=== PATIENT | female | born 1970 | race Caucasian/White ===

== ENCOUNTER → 2016-07-01 | Outpatient (CLI) | payer OTHER ==
[~2016-07-01] MED LIST: ACETAMINOPHEN PO; AGGRENOX CAPSU1 EACH PO; ALBUTEROL NEB INH; ALPRAZOLAM 0.50.5 M1 PO; ALPRAZOLAM 0.50.5 MG PO; AMBIEN 10 MG TA10 MG PO; AMLODIPINE BESY10 MG PO; AMOXICILLIN 50500 MG PO; AMOXICILLIN875 MG PO; ANAPROX DS550 MG PO; ASPIR 8181 M1 PO; ASPIRIN 81 MG T81 MG NG; AUGMENTIN 875875 MG PO; CIPRO500 MG PO; CIPROFLOXACIN500 M3 PO; CITRUCEL500 MG PO; CLARITIN10 MG PO; COLCHICINE 0.60.6 M1 PO; COUMADIN 4 MG TA4 M1 PO; CYMBALTA60 MG PO; EFFEXOR XR150 MG PO; ENOXAPARIN40 MG/0.1 SUBQ; FEROSUL325 MG PO; FLEXERIL PO; GABAPENTIN PO; GEMFIBROZIL 60600 MG PO; HYDROCODON-ACE1 EAC5 PO; HYDROCODONE-AP1 EACH PO; IBUPROFEN 400400 M2; KEFLEX500 MG PO; MIDODRINE HCL 55 M1 PO; MIRALAX255 GM PO; MUCINEX TA600 MG/TA1 PO; NEPHROCAPS SOFT1 CAP PO; NEURONTIN PO; NEURONTIN600 MG PO; NEXIUM20 M1 PO; NORVASC10 MG PO; NOVOLOG100 UNIT/1 SQ; OMEGA-31000 MG PO; PACERONE 200 M200 M1 OR; PRILOSEC 20 MG20 MG PO; PRILOSEC40 MG PO; RENAGEL PO; REQUIP XL2 MG PO; SIMVASTATIN40 MG PO; SYNTHROID 0.10.1 M1 PG; TOPROL XL 25 MG25 M1 PO; TRAMADOL HCL50 MG PO; UNICOMPLEX M TA1 TA1 PO; VENTOLIN HFA 1818 GM INH; VICODIN 5-5001 EACH PO; VITAMIN B-12100 MC1 PO; VITAMIN B-1250 MCG PO; VITAMIN E400 UNI1 PO; VITAMINC500 PO; XANAX 0.5 MG0.5 M1 PO
== END ==
LOC: CAT 02:56 → LAB 14:17 → CAT 14:22 → LAB 18:50
DX: K46.9 Unspecified abdominal hernia without obstruction or gangrene (principal)

== ENCOUNTER 2016-08-06 05:37 | Day surgery (SDC) | payer OTHER ==
[~2016-08-06] VITALS: Ht 165.1 cm; Wt 96.6 kg
--- NOTE | ~2016-08-06 | O ---
[facility] [place]rius [place] [address] OPERATIVE REPORT Name: CLAY MCGREGOR Room #: 150-7 [facility]#: [id number] Admission: 08/06/16 Attend Phys: Jacque England MD, Discharge: Date of : 70 Report #: [id number] THIS REPORT FOR: //name// CC: Jacque Duran DATE OF SERVICE: 08/06/2016 PREOPERATIVE DIAGNOSES: 1. Incarcerated recurrent parastomal hernia. 2. Intermittent abdominal pain. 3. Morbid obesity with a body mass index of 35.47. 4. Suspected intra-abdominal adhesions. POSTOPERATIVE DIAGNOSES: 1. Incarcerated recurrent parastomal hernia. 2. Intermittent abdominal pain. 3. Morbid obesity with a body mass index of 35.47. 4. Dense and significant intra-abdominal adhesions. PROCEDURES PERFORMED: 1. Laparoscopic repair of an incarcerated recurrent parastomal hernia with bioresorbable mesh in the modified Sugarbaker technique. 2. Extensive laparoscopic lysis of adhesions. SURGEON: Jacque England MD SUPERCHARGE REPAIR SUPERVISOR: Jerome Davis MD ANESTHESIA: General endotracheal anesthesia. ESTIMATED BLOOD LOSS: Minimal (less than 5 mL). COMPLICATIONS: None appreciated. SPECIMENS: Incarcerated hernia contents to pathology. INDICATIONS: The patient is a 46-year-old morbidly obese female who follows up nearly 2 years status post complex open abdominal wall reconstruction procedure for incarcerated recurrent incisional ventral hernia and recurrent parastomal hernia. The patient unfortunately developed postoperative wound breakdown at the skin level for which she underwent aggressive local wound care. The patient has lost nearly 80 pounds since that time secondary to healthy eating and increased activity, but unfortunately has had intermittent constipation alternating with diarrhea and discomfort around her ostomy. As such, the patient did undergo CT scan of the abdomen and pelvis, which showed an [facility] [address] [place] [address] OPERATIVE REPORT Name: BALBIRCLAY Arndt Room #: 150-7 [facility]#: [id number] Admission: 08/06/16 Attend Phys: Jacque England MD, Discharge: Date of : 70 Report #: [id number] incarcerated recurrent parastomal hernia containing omentum. Indication was for laparoscopic possible open repair today. PROCEDURE: After explaining the risks, benefits, and alternatives of the procedure with the patient in detail in the preoperative holding area and obtaining written consent, the patient was brought to the operating room and placed supine on the operating room table. After conducting a thorough timeout procedure, verifying correct patient and procedure, the patient was given general endotracheal anesthesia. Once adequate anesthesia was obtained, her SCDs were hooked up to pneumatic compression device, she was given a preoperative dose of antibiotics in line with the SCIP protocol. The patient's abdomen was now prepped and draped in standard surgical sterile fashion after placing a Parker catheter in her ostomy and inflating the 30mL balloon and then covering that with an Ioban. Once the patient was sterilely draped in standard fashion, 5 mL of 0.5% Marcaine with epinephrine were used to anesthetize the skin in the right lower quadrant at the anterior axillary line in a location immediately superior to the anterior superior iliac spine. A #15 bladed scalpel was used to create a small skin vivien at this location. A 5-mm Visiport was placed over 0 degree 5-mm laparoscope and was introduced through this incision site. Once intraabdominal placement was verified visually, the obturator for the trocar and laparoscope were both removed and the abdomen was insufflated to 15 mmHg using carbon dioxide gas. The laparoscope was changed to a 5-mm 30-degree laparoscope, which was reintroduced through this trocar. The entire abdomen was evaluated to ensure no injury upon entry. We immediately encountered marked intra-abdominal adhesions throughout the mid abdominal region into the left lateral abdomen; however, the right lateral abdomen was devoid of adhesions. As such, I was able to place 2 additional trocars in the right flank. The first of the 12-mm port placed in the right upper quadrant in a subcostal location and another was a 5-mm port in the subxiphoid location. Both additional trocars were placed under direct vision after anesthetizing the skin at each location with 5 mL of 0.5% Marcaine with epinephrine, and I had created appropriately sized skin nicks using #15 bladed scalpel. Laparoscope was placed through the 12-mm trocar and I began to carry out an extensive laparoscopic lysis of adhesions that took greater than 90 minutes to perform. Any time I was near bowel, cold dissection was undertaken with the EndoShears so as to prevent injury from thermal spread. Throughout the dissection, we stayed well away from bowel loops at all times until we approached the ostomy site where there was one loop of bowel near the ostomy site that was intimately tethered to prior biologic mesh that was used as an underlay. In taking this down with EndoShears, there was a questionable serosal defect and as such, I did use 3-0 PDS on an SH needle to perform a intracorporeal suture repair of the questionable serosal defect to be safe. I then completed the lysis of adhesions and was able to fully reduce the omentum incarcerated in the parastomal hernia. This left the ostomy intact with evidence of a moderate sized parastomal hernia. Photodocumentation of the hernia was taken and provided to the patient and permanent medical record. I then proceeded to repair the hernia defect using a [facility] [address] [place] [address] OPERATIVE REPORT Name: CLAY MCGREGOR Room #: 150-7 [facility].#: [id number] Admission: 08/06/16 Attend Phys: Jacque England MD, Discharge: Date of : 70 Report #: [id number] Surgidac on the EndoStitch device to place 3 sutures medial to the colon emanating through the abdominal wall. This brought the defect closed to where it was snug, but not extremely tight to the colon. Photodocumentation of this repair was also taken and provided to the patient in the permanent medical record. I then selected a piece of Phasix ST mesh that measured 10 x 10 cm in dimension. This was placed into the abdomen through the 12 mm port and was maneuvered into position to give us excellent overlap outside of the hernia repair and was done in a modified Sugarbaker technique. The secure strap absorbable fixation device was now used to place tacks throughout the Phasix mesh to anchor to the abdominal wall ensuring that the separate film side of the mesh was exposed to the intra-abdominal domain. The mesh was able to be seen through and therefore it was easy to ensure that we did not place a tack into bowel accidently. At the completion of the mesh fixation, we had excellent orientation of the mesh, the bowel run laterally down the pelvic side wall and we had complete hemostasis. Final evaluation of the intraabdominal domain showed no further evidence of pathology. Laparoscope was placed back into the subxiphoid trocar and I closed the 12-mm fascial incision using 0 PDS suture on a Sy-Dioni needle under direct vision. This was tied down. The abdomen was fully desufflated. All ports were removed under direct vision. A 4-0 Monocryl was used in a standard subcuticular fashion for all skin incisions and Dermabond glue was applied to all skin wounds. The Parker catheter was placed and the ostomy was removed at the completion of the procedure and digital finger intubation of her ostomy showed it to be patent to a subfascial level. I felt no further evidence of parastomal herniation at this time as well. At the end of the procedure, all instrument, needle, and sponge counts were correct. The patient tolerated the procedure without incident. She was awakened in the operating room, transitioned to the recovery room in stable condition with no apparent complications. <ELECTRONICALLY SIGNED> By: Jacque England MD, FACS 08/06/16 1617 [id number] Jacque England MD, FACS /nt
--- NOTE | ~2016-08-06 | S ---
[facility] [place] [address] SURGICAL PATH RPT PROCEDURE Name: SHALA DANIEL Room #: [facility].#: [id number] Admission: 08/06/16 Date of : 70 Discharge: 08/06/16 Report #: [id number] Path Case #: [id number] PATHOLOGY REPORT COLLECTION DATE: 08/06/2016 RECEIVED DATE: 08/07/2016 SUBMITTING PHYS: Dr. Jacque England OTHER PHYS: Dr. Jerome Duran SPECIMEN(S) RECEIVED: A.Parastomal hernia contents * * * * * * * * * * * * FINAL DIAGNOSIS: A. "Parastomal hernia contents", hernia repair: - Vascularized fibroadipose connective tissue consistent with hernia sac showing fibrosis, predominantly chronic inflammation, and focal reactive and degenerative changes. (CLW; 08/10/16) PATHOLOGIST: Wendy German M.D. REPORT ELECTRONICALLY SIGNED BY: Wendy German M.D. DATE/TIME: 08/10/2016 23:06 * * * * * * * * * * * * GROSS PATHOLOGY: Received in formalin labeled "Shala Daniel, peristomal hernia contents," is a piece of fibroadipose tissue measuring 3.6 x 2.3 x 1.2 cm. No nodules or lesions are identified. Assembler Insulator tissue is submitted in cassette A1. (SEAN; 08/07/2016) CLINICAL HISTORY: None provided INITIAL CPT CODE(S): A; 72929 Professional services performed by [facility] at [facility] [address] [place] [address] Technical services performed by [facility] at [address] [place] [address] [id number] [facility] [address] [place] [address] SURGICAL PATH RPT PROCEDURE Name: SHALA DANIEL Room #: [facility]P [facility] Darvin#: [id number] Admission: 08/06/16 Date of : 70 Discharge: 08/06/16 Report #: [id number] Path Case #: [id number] [facility] [place] [id number] [address] PHONE: [phone] DIRECTOR: Rj Evans M.D. * * * END OF REPORT * * *
[~2016-08-06 05:37] MED LIST changes: +ATIVAN1 MG PO; +GABAPENTIN 100100 MG PO; +IRON325 PO; +REQUIP 0.25 M0.25 MG PO; +VITAMIN D32000 UNI1 PO
[2016-08-06 10:00] VITALS: BP 137/89
[2016-08-06 10:04] LABS: CALCIUM 8.3 mg/dL (8.5-10.1); CREATININE 0.7 mg/dL (0.6-1.0); POTASSIUM 4.1 mmol/L (3.5-5.1)
[2016-08-06 10:09] LABS: ALBUMIN 3.2 g/dL (3.4-5.0); TOTAL BILIRUBIN 0.6 mg/dL (<0.1-1.0); TOTAL PROTEIN 7.3 g/dL (6.4-8.2)
[2016-08-06] MEDS ORDERED: NEURONTIN 300300 M1 PO (13:20)
[2016-08-06] MEDS ORDERED: PERCOCET 7.5-31 EACH PO (13:20)
[2016-08-06] MEDS ORDERED: SENNA-S TABLET1 EACH PO (13:20)
[2016-08-06 13:41] VITALS: BP 137/89
== END 2016-08-06 14:58 | disposition home or self-care (01) ==
LOC: OR 05:37 → TBA 05:37 → OR 09:23
PROVIDERS: Surgery
DX: K43.3 Parastomal hernia with obstruction, without gangrene (principal); E66.01 Morbid (severe) obesity due to excess calories; Z68.35 Body mass index [BMI] 35.0-35.9, adult
CPT/HCPCS: 50010; 50101; 50249; 50386; 50507; 50555; 50558; 50962; 50984; 52265; 53307; 54022; 54118; 55326; 56462; 56525; 56526; 56527; 56531; 57092; 62110; 62900; 70005